=== PATIENT | female | born 1940 | race Caucasian/White ===

== ENCOUNTER 2017-03-15 13:41 | Outpatient (CLI) | payer OTHER | END 2017-03-15 13:42 | disposition home or self-care (01) | LOC: RAD 13:41 | PROVIDERS: ATTEND Internal Medicine | DX: Z12.31 Encounter for screening mammogram for malignant neoplasm of breast (principal) | CPT/HCPCS: 77067 ==

== ENCOUNTER 2018-04-25 08:56 | Outpatient (CLI) ==
--- NOTE | 2018-04-25 09:47 | US ---
EXAM: Limited abdominal ultrasound. History: Abdominal pain, diarrhea. Technique: Multiple sonographic images through the abdomen were obtained. Color duplex Doppler was used to interrogate vascular flow. Findings: The liver is enlarged. The liver is diffusely echogenic. No focal liver lesions identifi ed sonographically. Visualized pancreas demonstrates no gross abnormality. No abdominal ascites. T here is antegrade flow within the main portal vein. Limited visualization of the right kidney demons trates no evidence for hydronephrosis. 1.9 cm simple right renal cyst. Cholelithiasis. No gallblad callie wall thickening. Common bile duct measures 0.4 cm in caliber. Impression: 1. Cholelithiasis. No gallbladder wall thickening. 2. Enlarged fatty liver
--- NOTE | 2018-04-25 10:23 | CT ---
EXAM: CT ABDOMEN AND PELVIS HISTORY: Diarrhea, gallstones TECHNIQUE: CT abdomen and pelvis with intravenous contrast. Images were reconstructed using 5 mm se ction thickness. Reformations were prepared. 75 mL Omnipaque. COMPARISON: 09/27/2011 FINDINGS: The liver architecture appears cirrhotic. No focal hepatic lesions. There is a small ill-defined lo w attenuation lesion of the posterior spleen and 11 mm. Several small gallstones are identified. Th ere is no evidence of gallbladder distension or wall thickening. Pancreas is within normal limits. Right adrenal gland is normal. A few low attenuation nodules of the left adrenal gland are grossly s table probably representing adenomas. Kidneys have several cortical cystic masses largest anteriorly on the left at 3.4 cm. These have developed or enlarged since the previous exam. No obvious recording studio intern al enhancement and therefore these probably represent simple cysts although correlation with ultrasou nd of the kidneys should be considered. There is no hydronephrosis. Mild atherosclerotic disease. There is a tiny sliding hiatal hernia. Normal appendix. Mild fold thickening of some of the small b owel. Fluid consistency stool in portions of the colon. At least one uterine mass is suggested, pos sible fibroid. Urinary bladder is unremarkable. There is no ascites. No ventral hernia or acute bony finding. Lung bases are clear. No pneumoperitoneum. IMPRESSION: 1. Probable mild enterocolitis. No bowel obstruction, ascites or free air. 2. Cholelithiasis. 3. Probable cirrhotic liver. 4. Small low attenuation lesion in the posterior spleen. Cystic masses of the kidneys which probabl y represent simple cysts. Correlation with ultrasound abdomen complete is recommended. 5. Atherosclerosis. 6. Small hiatal hernia. 7. Probable uterine fibroids. Consider pelvic ultrasound. 8. Small stable fatty nodules of the left adrenal gland likely adenomas.
== END 2018-04-25 08:57 | disposition home or self-care (01) ==
LOC: RAD 08:56
PROVIDERS: ATTEND Internal Medicine
DX: R31.9 Hematuria, unspecified (principal); R19.7 Diarrhea, unspecified; K80.80 Other cholelithiasis without obstruction
CPT/HCPCS: 36415; 81001; 82565; 87086

== ENCOUNTER 2018-04-28 13:27 | Outpatient (CLI) | payer OTHER ==
--- NOTE | 2018-05-01 08:29 | MAMMO ---
EXAM: Bilateral digital screening mammogram (2-D and 3-D) History: Screening Comparison: Bilateral mammogram 03/15/2017 Findings: MLO and CC views of bilateral breasts demonstrate predominately fatty replaced breast pare nchyma. Stable benign lymph node within the left breast. There are no developing masses, no suspici ous microcalcifications and no architectural distortions Impression: Benign stable mammogram. Recommend followup routine screening mammography in 1 year. BIRADS 2, benign
== END 2018-04-28 13:28 | disposition home or self-care (01) ==
LOC: RAD 13:27
PROVIDERS: ATTEND Internal Medicine
DX: Z12.31 Encounter for screening mammogram for malignant neoplasm of breast (principal)

== ENCOUNTER 2018-05-03 08:25 | Outpatient (CLI) ==
--- NOTE | 2018-05-03 09:14 | US ---
EXAM: Renal ultrasound. History: Renal cysts. Comparison: CT abdomen pelvis 04/25/2018 Technique: Multiple sonographic images through the kidneys were obtained. Color duplex Doppler was used to interrogate vascular flow. Findings: Bladder was not well distended. No focal bladder wall thickening. The right kidney measures 12.6 cm in long length demonstrating normal cortical echogenicity without e vidence for hydronephrosis or shadowing calculus. 1.7 cm anechoic cyst within the superior pole. The left kidney measures 11.1 cm in long length demonstrating normal cortical echogenicity without ev idence for hydronephrosis or shadowing calculus. 3.7 cm anechoic cyst within the inferior pole. 1.9 cm anechoic cyst within the superior pole. Impression: 1. Simple bilateral renal cysts. 2. No hydronephrosis
== END 2018-05-03 08:26 | disposition home or self-care (01) ==
LOC: RAD 08:25
PROVIDERS: ATTEND Surgery
DX: N28.1 Cyst of kidney, acquired (principal)

== ENCOUNTER 2018-10-10 06:47 | Day surgery (SDC) | payer OTHER ==
[2018-10-10 07:10] VITALS: TEMP 97.6
[2018-10-10] MEDS ORDERED: DIPRIVAN 20 ML VIAL IVP ONE (08:00)
[2018-10-10 08:53] VITALS: BP 156/76
--- NOTE | 2018-10-11 10:02 | OP ---
INDICATIONS FOR PROCEDURE: 78-year-old female presents for endoscopy and colonoscopy. She has been having some vague abdominal discomfort. She usually states this is around her bowel movements. She does have diarrhea. She states she has loose stools daily. She did not try the [employer] diet as suggested in the office. She also has a family history of colon cancer involving her father and paternal grandfather. Currently a nephew has had cancer of the colon as well. MEDICATIONS: SEE ANESTHESIA NOTES. PROCEDURE: 1. ENDOSCOPY, ELÍAS BIOPSY, ESOPHAGEAL BIOPSY, MOSOTHO DILATATION. 2. COLONOSCOPY, SNARE POLYPECTOMY, ENDOCLIP THERAPY, BIOPSY. REPORT: The risks, benefits, alternatives and limitations were discussed in detail with the patient. Informed consent was obtained. After adequate sedation was achieved, the video endoscope was introduced in the posterior pharynx and esophagus under direct vision and easily advanced down to the second portion of the duodenum. I then slowly withdrew. In the second portion of the duodenum, there is a tiny AVM noted. The duodenal bulb appeared unremarkable. The antrum and body had mild erythema suggesting mild underlying gastritis. Two biopsies from the antral wall and from body obtained for H. Pylori testing. The scope was retroflexed to look at cardia and fundus which revealed a hiatal hernia. The scope was anteflexed and withdrawn back into the esophagus area. There was a 2 to 3 cm sliding hiatal hernia. At the GE junction there is a circumferential stricture causing mild to moderate narrowing. I biopsied the stricture for histologic review. The esophagus itself appeared unremarkable. There is minimal inflammation at the stricture. I then advanced the scope back in the gastric lumen. I placed a guidewire and withdrew the scope. Over the guidewire I easily advanced a 54 [place] dilator. The patient tolerated this procedure well with stable vital signs and pulse oximetry throughout. The patient's bed was turned. A digital rectal exam revealed good tone, no masses. The colonoscope was introduced into the rectum and was advanced under direct visual guidance to the cecum. The cecum was identified by the appendiceal orifice and IC valve. I then slowly withdrew the scope in a circumferential manner examining the mucosa quite carefully. I was able to retroflex the scope in the right colon and left colon to increase visualization. At the hepatic flexure, there is a sessile 6 or 7 mm polyp. I removed this via snare technique. I used an endoclip to close the polypectomy site. Withdrawing the scope further through the colon revealed no other abnormalities except hemorrhoids noted on retroflex view of the anal canal. I did obtain biopsies in the right colon and left colon for histologic review. Withdrawal time was 10 minutes and 34 seconds. The patient tolerated this procedure well with stable vital signs and pulse oximetry throughout. IMPRESSION: 1. Minimal to mild gastritis. 2. Small duodenal AVM. 3. Small sliding hiatal hernia. 4. Distal esophageal stricture with minimal inflammation present, dilated as above. 5. Colonic polyp removed. 6. Small internal hemorrhoids. RECOMMENDATION: 1. Strict reflux precautions. 2. Await H. Pylori, if positive, will initiate treatment. 3. Advised her to make sure she cuts and chews her food well. 4. Trial of Protonix 40 mg q.a.m. for one month. 5. Colestid two tablets daily. 6. Await colonic biopsies to evaluate for evidence of microscopic colitis. 7. Await colon polyp pathology. If everything is benign as expected, I recommend a repeat colonoscopy examination again in three years. 8. Followup in the office in 6 to 8 weeks. CC: DR. VIKRAM EVANS
== END 2018-10-10 09:40 | disposition home or self-care (01) ==
LOC: SURG 06:47
PROVIDERS: ATTEND Internal Medicine Gastroenterology
DX: R19.7 Diarrhea, unspecified (principal); R10.13 Epigastric pain; K29.70 Gastritis, unspecified, without bleeding; K44.9 Diaphragmatic hernia without obstruction or gangrene; K22.2 Esophageal obstruction; K64.8 Other hemorrhoids; D12.3 Benign neoplasm of transverse colon
CPT/HCPCS: 87339